=== PATIENT | male | born 1995 | race Caucasian/White ===

== ENCOUNTER → 2017-04-07 | Outpatient (CLI) | payer OTHER ==
[~2017-04-07] MED LIST: SULF10SO2 OPR
[2017-04-07 14:44] LABS: CHOLESTEROL/HDL RATIO 4.1
== END | disposition home or self-care (01) ==
LOC: C.LABBC 09:55
PROVIDERS: ATTEND Physician Assistant
DX: Z00.00 Encounter for general adult medical examination without abnormal findings (principal)

== ENCOUNTER → 2017-04-08 | Outpatient (CLI) | payer OTHER ==
--- NOTE | 2017-04-08 09:04 | DIAGNOSTIC IMAGING REPORT ---
RIGHT LOWER LEG ULTRASOUND CLINICAL HISTORY: R22.41 Localized swelling, mass and lump, right lower limb. pr Right COMPARISON STUDY: None. FINDINGS: Real-time sonographic imaging of the right lower leg was performed. Within the distal right lower leg at the patient's palpable abnormality there is a 1.2 x 1.0 x 0.4 cm hypoechoic structure. This appears to represent a portion of the adjacent muscle herniating through a fascial plane and into the subcutaneous fat. No fluid collections identified. This demonstrates slight increased herniation widely patient is standing. IMPRESSION: A 1.2 x 1.0 x 0.4 cm hypoechoic structure within the right lower leg which corresponds to the patient's palpable abnormality. This is contiguous with the adjacent muscle and appears to represent a small focus of muscle herniating through the fascial plane and into the subcutaneous fat. Electronically signed by: John Rubin M.D. 04/08/2017 9:03 AM Dictated Date/Time: 04/08/2017 9:00 AM
== END | disposition home or self-care (01) ==
LOC: C.ULTR 08:28
PROVIDERS: ATTEND Physician Assistant
DX: R22.41 Localized swelling, mass and lump, right lower limb (principal)